=== PATIENT | female | born 1985 | race Asian ===

== ENCOUNTER 2016-10-20 08:15 | Inpatient (IN) | payer SELFPAY ==
[~2016-10-20] VITALS: Ht 166 cm; Wt 65.0 kg
[2016-10-20] MEDS ORDERED: OXYTOCIN 20 UNITS/LR PREMIX 1,000 ML IV SCH (08:44)
[2016-10-20] MEDS ORDERED: IBUPROFEN 800 MG TAB PO PRN ×2 (08:45→23:45)
[2016-10-20] MEDS ORDERED: METHYLERGONOVINE 0.2 MG/ML AMP IM SCH (08:45)
[2016-10-20] MEDS ORDERED: PROMETHAZINE 25 MG/ML VIAL IVP PRN (08:45)
[2016-10-20] MEDS ORDERED: CARBOPROST 250 MCG/ML AMP IM PRN (08:45)
[2016-10-20] MEDS ORDERED: NALBUPHINE 10 MG/ML AMP IVP PRN (08:45)
[2016-10-20] MEDS: LACTATED RINGERS 1,000 ML IV SCH ×3 (08:50→13:44)
[2016-10-20] MEDS ORDERED: BUPIVACAINE 0.125%/NS PREMIX 250 ML ONE (09:18)
[2016-10-20 09:25] VITALS: BP 110/68
[2016-10-20] MEDS ORDERED: OXYTOCIN 10 UNITS/ML VIAL IM ONE (10:00)
[2016-10-20] MEDS ORDERED: OXYTOCIN 20 UNITS/LR PREMIX 1,000 ML IV ONE (10:57)
[2016-10-20] MEDS ORDERED: OXYTOCIN 10 UNITS/ML VIAL ONE (18:35)
[2016-10-20] MEDS ORDERED: oxyCODONE/APAP 5/325 MG 1 TAB TAB PO PRN (21:35)
[2016-10-20] MEDS ORDERED: BENZOCAINE/MENTHOL 20%-0.5% 60 GM CAN TP PRN (21:35)
[2016-10-20] MEDS ORDERED: METHYLERGONOVINE 0.2 MG/ML AMP IM PRN (21:35)
[2016-10-20] MEDS ORDERED: WITCH HAZEL 40 PAD PACKAGE TP PRN (21:35)
[2016-10-20] MEDS ORDERED: OXYTOCIN 10 UNITS/ML VIAL IM PRN (21:35)
[2016-10-20] MEDS ORDERED: MEASLES, MUMPS, AND RUBELLA 1 VIAL SQVAC PRN (21:35)
[2016-10-20] MEDS ORDERED: TEMAZEPAM 15 MG CAP PO PRN (21:35)
[2016-10-20] MEDS ORDERED: AMMONIA AROMATIC 1 INHL INH ONE (22:27)
[2016-10-20] MEDS ORDERED: BETHANECHOL 25 MG TAB PO PRN (23:25)
[2016-10-21] MEDS ORDERED: INFLUENZA VIRUS VACCINE QUAD 0.5 ML SYR IMVAC SCH (00:01)
[2016-10-21] MEDS: HYDROcodone/APAP 5/325 MG 1 TAB TAB PO PRN ×2 (01:38→19:58)
--- NOTE | 2016-10-21 09:00 | NUR ---
PATIENT HAS BEEN SCREENED AND CATEGORIZED LOW NUTRITION RISK. PATIENT WILL BE SEEN WITHIN 7 DAYS OF ADMISSION. 10/26/[address]
[2016-10-21] MEDS ORDERED: DOCUSATE SOD/SENNA 50/8.6 MG 1 TAB PO SCH ×2 (21:00)
== END 2016-10-21 21:53 | disposition home or self-care (01) | DRG 775 ==
LOC: MLD 08:15 → MFCC 23:35
PROVIDERS: ADMIT Obstetrics & Gynecology; ATTEND Obstetrics & Gynecology
PROC: 10E0XZZ Delivery of Products of Conception, External Approach (ICD-10-PCS; principal; 2016-10-20)
PROC: 10907ZC Drainage of Amniotic Fluid, Therapeutic from Products of Conception, Via Natural or Artificial Opening (ICD-10-PCS; 2016-10-20)
PROC: 0W8NXZZ Division of Female Perineum, External Approach (ICD-10-PCS; 2016-10-20)
PROC: 00HU33Z Insertion of Infusion Device into Spinal Canal, Percutaneous Approach (ICD-10-PCS; 2016-10-20)
PROC: 3E0R3CZ (ICD-10-PCS; 2016-10-20)
DX: O80 Encounter for full-term uncomplicated delivery (principal); Z3A.39 39 weeks gestation of pregnancy; Z37.0 Single live birth